=== PATIENT | male | born 1980 | race Two or more races ===

== ENCOUNTER 2021-09-25 17:41 | Emergency (ER) | payer OTHER ==
[~2021-09-25] VITALS: Ht 170.2 cm; Wt 81.6 kg
== END 2021-09-26 00:07 | disposition home or self-care (01) ==
LOC: ER 17:41
DX: K76.0 Fatty (change of) liver, not elsewhere classified (principal); K57.30 Diverticulosis of large intestine without perforation or abscess without bleeding